=== PATIENT | male | born 1960 | race Caucasian/White ===

== ENCOUNTER → 2017-08-16 | Outpatient (CLI) | payer BC, OTHER ==
--- NOTE | 2017-08-16 11:01 | PCVCIMAG ---
EXAM: ABDOMINAL ULTRASOUND COMPLETE INDICATION: Abdominal pain FINDINGS: Gallbladder: No gallstones. No wall thickening or abnormal pericholecystic fluid. Liver: Normal in size measuring 16.7 cm in length. No focal masses. 1.6 cm benign cyst right hepatic lobe 1.2 cm benign cyst left hepatic lobe. Bile ducts: No intra or extra hepatic bile duct dilatation. The common bile duct measures 7.6 mm. Pancreas: Unremarkable where seen. Spleen: Normal in size measuring 12.2 cm in greatest dimension. No focal masses. Right kidney: No hydronephrosis. Length measures 11.0 cm. Left kidney: No hydronephrosis. Length measures 10.7 cm. Inferior vena cava: Normal in size where seen. Aorta: Normal in caliber where seen. IMPRESSION: Couple of benign hepatic cysts. Abdomen otherwise unremarkable. No cholelithiasis. LOC:[id number]
== END | disposition home or self-care (01) ==
LOC: PCVCIMAG 09:10
PROVIDERS: ATTEND Internal Medicine Cardiovascular Disease
DX: K76.89 Other specified diseases of liver (principal); R10.9 Unspecified abdominal pain
CPT/HCPCS: 76700